=== PATIENT | female | born 1965 | race Caucasian/White ===

== ENCOUNTER 2020-11-22 22:35 | Observation (INO) | payer MEDICAID, SELFPAY ==
[~2020-11-22] VITALS: Ht 162.6 cm; Wt 77.1 kg
[2020-11-22] MEDS ORDERED: NACL 0.9% 1,000 ML IV ONE (23:00)
[2020-11-22 23:07] LABS: BASOPHILS % (AUTO) 0.3 % (0.0-2.0); EOSINOPHILS # (AUTO) 0.2 K/uL (0.0-0.4); EOSINOPHILS % (AUTO) 2.4 % (0.0-4.0); HEMATOCRIT 35.4 % (36-48); HEMOGLOBIN 12.1 g/dL (12.0-16.0); LYMPHOCYTES # (AUTO) 2.2 K/uL (1.0-5.5); LYMPHOCYTES % (AUTO) 33.5 % (20.5-51.5); MEAN CORPUSCULAR HEMOGLOBIN 32 pg (27-31); MEAN CORPUSCULAR HGB CONC 34 % (32-36); MEAN CORPUSCULAR VOLUME 94 fL (79.0-98.0); MONOCYTES # (AUTO) 0.7 K/uL (0.0-1.0); MONOCYTES % (AUTO) 10.9 % (1.7-9.3); NEUTROPHILS # (AUTO) 3.5 K/uL (1.8-7.7); NEUTROPHILS % (AUTO) 52.9 % (40.0-70.0); PLATELET COUNT (AUTO) 190 K/uL (130-430); RED BLOOD CELL COUNT(AUTO) 3.79 MIL/uL (4.2-6.2); RED CELL DISTRIBUTION WIDTH 16.4 % (9.0-15.0); WHITE BLOOD COUNT (AUTO) 6.7 K/uL (4.8-10.8)
[2020-11-22 23:15] LABS: CALCIUM 8.4 mg/dL (8.4-11.0); CREATININE 1.29 mg/dL (0.55-1.30); POTASSIUM 3.8 mmol/L (3.5-5.1)
[2020-11-22 23:17] LABS: INR 0.9 (0.8-1.2); PROTHROMBIN TIME 9.8 SECS (9.5-12.5)
[2020-11-22 23:22] LABS: ALBUMIN 3.4 g/dL (3.4-4.8); TOTAL BILIRUBIN 0.2 mg/dL (0.0-1.0)
[2020-11-22 23:26] VITALS: BP_SYST 120
[2020-11-23] MEDS ORDERED: IOHEXOL 350 mgI/mL, 150 ML INFUS..BTL IV ONE (00:54)
[2020-11-23] MEDS ORDERED: GUAN1TAB PO (01:41)
[2020-11-23] MEDS ORDERED: OMEP20CA15 PO (01:41)
[2020-11-23] MEDS ORDERED: OLAN5TAB26 PO (01:41)
[2020-11-23] MEDS ORDERED: PRO20 PO (01:41)
[2020-11-23] MEDS ORDERED: DOCU-144 PO (01:41)
[2020-11-23] MEDS ORDERED: NEU300 PO (01:41)
[2020-11-23] MEDS ORDERED: ACAM333T9 PO (01:41)
[2020-11-23] MEDS ORDERED: OXCA600T5 PO ×2 (01:41)
[2020-11-23] MEDS ORDERED: PROP80CA55 PO (01:41)
[2020-11-23] MEDS ORDERED: OLANZapine 5 MG TABLET PO ONE (11:45)
[2020-11-23] MEDS ORDERED: OXcarbazepine 150 MG TABLET(TRILEPTAL) PO SCH (12:00)
[2020-11-23 13:00] VITALS: BP_SYST 129
[2020-11-23] MEDS: ASPIRIN 81 MG TAB.CHEW PO SCH (15:35)
[2020-11-23 19:30] VITALS: BP_SYST 130
[2020-11-23] MEDS: ENOXAPARIN SODIUM 40 MG/0.4 ML SYRINGE SUBCUT SCH (21:05)
[2020-11-24] VITALS: BP_SYST 110
[2020-11-24 07:53] LABS: CALCIUM 8.9 mg/dL (8.4-11.0); CREATININE 0.98 mg/dL (0.55-1.30); PHOSPHORUS 4.1 mg/dL (2.7-4.5); POTASSIUM 4.2 mmol/L (3.5-5.1)
[2020-11-24 08:00] VITALS: BP_SYST 130
[2020-11-24] MEDS: OXcarbazepine 150 MG TABLET(TRILEPTAL) PO SCH (08:52)
[2020-11-24] MEDS: DOCUSATE SODIUM 100 MG CAPSULE PO SCH (08:53)
[2020-11-24] MEDS: FLUoxetine HCL 20 MG CAPSULE (PROzac) PO SCH (08:53)
[2020-11-24] MEDS: PANTOPRAZOLE SODIUM 40 MG TAB PO SCH (08:53)
[2020-11-24] MEDS: ASPIRIN 81 MG TAB.CHEW PO SCH (08:53)
[2020-11-24] MEDS: GABAPENTIN 300 MG CAPSULE PO SCH (08:53)
[2020-11-24] MEDS: OLANZapine 5 MG TABLET PO SCH (08:55)
[2020-11-24] MEDS ORDERED: PROPRANOLOL HCL 80 MG (INDERAL LA 80MG) PO SCH (09:00)
[2020-11-24 09:22] LABS: BASOPHILS % (AUTO) 0.6 % (0.0-2.0); EOSINOPHILS # (AUTO) 0.1 K/uL (0.0-0.4); EOSINOPHILS % (AUTO) 2.9 % (0.0-4.0); LYMPHOCYTES # (AUTO) 1.8 K/uL (1.0-5.5); LYMPHOCYTES % (AUTO) 38.1 % (20.5-51.5); MEAN CORPUSCULAR HEMOGLOBIN 31 pg (27-31); MEAN CORPUSCULAR HGB CONC 33 % (32-36); MEAN CORPUSCULAR VOLUME 94 fL (79.0-98.0); MONOCYTES # (AUTO) 0.4 K/uL (0.0-1.0); MONOCYTES % (AUTO) 9.3 % (1.7-9.3); NEUTROPHILS # (AUTO) 2.3 K/uL (1.8-7.7); NEUTROPHILS % (AUTO) 49.1 % (40.0-70.0); PLATELET COUNT (AUTO) 179 K/uL (130-430); RED BLOOD CELL COUNT(AUTO) 3.83 MIL/uL (4.2-6.2); RED CELL DISTRIBUTION WIDTH 16.5 % (9.0-15.0)
[2020-11-24 09:48] LABS: WHITE BLOOD COUNT (AUTO) 4.7 K/uL (4.8-10.8)
[2020-11-24 12:06] VITALS: BP_SYST 123
[2020-11-24 20:17] VITALS: BP_SYST 130
[2020-11-24] MEDS: ENOXAPARIN SODIUM 40 MG/0.4 ML SYRINGE SUBCUT SCH (20:22)
[2020-11-24] MEDS ORDERED: traZODone HCL 50 MG TABLET (DESYREL) PO PRN (22:15)
[2020-11-25 07:56] VITALS: BP_SYST 150
[2020-11-25] MEDS ORDERED: PROPRANOLOL HCL (INDERAL LA 60MG) PO SCH (09:00)
[2020-11-25] MEDS ORDERED: GUANFACINE HCL 1 MG PO SCH (09:00)
[2020-11-25] MEDS ORDERED: ACAMPROSATE CALCIUM PO SCH (09:00)
[2020-11-25] MEDS: OLANZapine 5 MG TABLET PO SCH (10:03)
[2020-11-25] MEDS: OXcarbazepine 150 MG TABLET(TRILEPTAL) PO SCH (10:04)
[2020-11-25] MEDS: DOCUSATE SODIUM 100 MG CAPSULE PO SCH (10:04)
[2020-11-25] MEDS: FLUoxetine HCL 20 MG CAPSULE (PROzac) PO SCH (10:04)
[2020-11-25] MEDS: PANTOPRAZOLE SODIUM 40 MG TAB PO SCH (10:04)
[2020-11-25] MEDS: GABAPENTIN 300 MG CAPSULE PO SCH (10:05)
[2020-11-25] MEDS: ASPIRIN 81 MG TAB.CHEW PO SCH (10:05)
[2020-11-25 12:05] VITALS: BP_SYST 129
[2020-11-25 14:35] VITALS: BP_SYST 110
[2020-11-25] MEDS ORDERED: AMITRIPTYLINE HCL 25 MG TABLET (ELAVIL) PO SCH (21:00)
== END 2020-11-25 15:05 | disposition home or self-care (01) ==
LOC: SED 22:35 → STU 11-23 03:07
PROVIDERS: ADMIT Family Medicine; ATTEND Family Medicine
DX: R00.1 Bradycardia, unspecified (principal); Z20.822 Contact with and (suspected) exposure to COVID-19; F41.8 Other specified anxiety disorders; R06.02 Shortness of breath; G89.29 Other chronic pain; M54.9 Dorsalgia, unspecified; F10.21 Alcohol dependence, in remission; F17.200 Nicotine dependence, unspecified, uncomplicated
CPT/HCPCS: 36415 ×3; 71045; 71275; 76376; 80048; 80053; 82550 ×2; 83735; 83880; 84100; 84484 ×2; 85025 ×2; 85379; 85610; 87426; 93005; 93306; 96360; 96372 ×2; 99285; G0378 ×3; J1650 ×2; Q9967 ×2